=== PATIENT | female | born 1950 | race Caucasian/White ===

== ENCOUNTER → 2017-04-03 | Outpatient (CLI) | payer BC ==
--- NOTE | 2017-04-07 12:28 | MAMMOGRAPHY REPORT ---
BILATERAL DIGITAL SCREENING MAMMOGRAM TOMOSYNTHESIS WITH CAD: 04/03/2017 CLINICAL HISTORY: Routine screening. Patient has no complaints. TECHNIQUE: Breast tomosynthesis in addition to standard 2D mammography was performed. Current study was also evaluated with a Computer Aided Detection (CAD) system. COMPARISON: No prior exams were available for comparison. BREAST COMPOSITION: There are scattered areas of fibroglandular density in both breasts. FINDINGS: There is a small cluster of calcifications in the left upper and slightly inner breast, as well as a possible small cluster of calcifications within the left lower inner quadrant. Recommend spot magnification views for further evaluation. Additionally, there are 2 adjacent circumscribed ma sses seen within the right upper outer quadrant, one measuring 12 mm and the other measuring 5 mm, fo r which ultrasound and possible additional spot compression views are recommended for further evaluat ion. The remainder of both breasts demonstrate no suspicious masses, calcifications, or areas of principal network architect ural distortion. IMPRESSION: ACR BI-RADS CATEGORY 0: INCOMPLETE EVALUATION: NEED ADDITIONAL IMAGING EVALUATION Left breast calcifications and right breast masses, for which additional imaging evaluation is recomm ended. The patient will be called to schedule an appointment. Approximately 10% of breast cancers are not detected with mammography. A negative mammographic report should not delay biopsy if a clinically suggestive mass is present. Anai Lopez M.D. ah/:04/04/2017 16:45:53 Tank Car Loader: Ivana Blood M, [facility] letter sent: Addl Imaging 0 BI-RADS Code: ACR BI-RADS Category 0: Incomplete Evaluation: Need Additional Imaging Evaluation
== END | disposition home or self-care (01) ==
LOC: C.MAMM 16:00
PROVIDERS: ATTEND Internal Medicine Pulmonary Disease
DX: Z12.31 Encounter for screening mammogram for malignant neoplasm of breast (principal); R92.1 Mammographic calcification found on diagnostic imaging of breast; N63 Unspecified lump in breast

== ENCOUNTER → 2017-04-22 | Outpatient (CLI) | payer BC ==
--- NOTE | 2017-04-22 14:53 | MAMMOGRAPHY REPORT ---
UNILATERAL LEFT DIGITAL DIAGNOSTIC MAMMOGRAM AND TARGETED RIGHT ULTRASOUND: 04/22/2017 CLINICAL HISTORY: Callback from screening mammography for 2 groupings of left breast microcalcificati ons, and 2 right breast masses. Patient reports prior mammograms and [place], but they are not curre ntly available. Prior mammograms from 2006 and 2007 have been purged and are unobtainable. TECHNIQUE: Spot magnification left CC and ML views were obtained. COMPARISON: Comparison is made to exam dated: 04/03/2017 mammogram - [facility]. BREAST COMPOSITION: There are scattered areas of fibroglandular density in the left breast. FINDINGS: Spot magnification views of the left breast demonstrate a few coarse benign calcifications. There are 1-2 faint groupings of punctate and amorphous microcalcifications. The most conspicuous grouping is located in the 11:30 to 12:00 middle one third of the left breast, measuring 4 mm. Possi ble a few other loosely grouped punctate and amorphous microcalcifications in the lower inner anterio r left breast. As no prior mammograms are available to document stability, the microcalcifications a re indeterminate. Stereotactic guided biopsy of the 4 mm cluster in the 11:30 to 12:00 axis is recom mended. Pending pathology results, can follow the other loose grouping in the lower inner quadrant i n 6 months to ensure stability. Targeted ultrasound was performed throughout the right lateral breast to assess for the 2 possible ma sses identified mammographically. In the 10:00 axis, 4 cm from the nipple, there is a circumscribed parallel hypoechoic solid mass measuring 6.6 x 4.4 x 10.1 mm. Although this could represent a benign fibroadenoma, definitive characterization with tissue sampling is recommended. A lobulated parallel anechoic benign simple cyst is identified in the 10:00 right breast, 3 cm from the nipple, measuring 7.0 x 2.6 x 4.3 mm. There is a small adjacent cyst cluster in the 10:00 right breast, 3 cm from the nipple, measuring 5 mm. No other discrete solid or cystic masses seen throughout the lateral right breast. IMPRESSION: ACR BI-RADS CATEGORY 4B: INTERMEDIATE SUSPICION FOR MALIGNANCY, TARGETED ULTRASOUND ACR BI-RADS CATEGORY 4B: INTERMEDIATE SUSPICION FOR MALIGNANCY 1. Left breast stereotactic guided biopsy is recommended for a 4 mm cluster/grouping of amorphous mi crocalcifications in the 11:30 to 12:00 axis. Pending benign pathology results, would follow the [facility] er loosely grouped amorphous microcalcifications in the left lower inner quadrant in 6 months. 2. Ultrasound-guided core needle biopsy is recommended for an indeterminate solid 10 mm mass in the 10:00 right breast, 4 cm from the nipple. 3. Only a few other cysts and cyst clusters were identified in the lateral right breast on ultrasound . Therefore, correlation with post procedure mammograms is recommended. These results and recommendations were discussed with the patient at the time of the exam. She tenta tively scheduled the biopsies prior to leaving our department. Approximately 10% of breast cancers are not detected with mammography. A negative mammographic report should not delay biopsy if a clinically suggestive mass is present. Ivy Paredes M.D. ay/:04/22/2017 14:47:26 Hourly Sign Language Interpreter: Kayli MÉNDEZ(Ivana)(Jacque), [facility] letter sent: Abnormal 4/5 BI-RADS Code: ACR BI-RADS Category 4B: Intermediate Suspicion For Malignancy Ultrasound BI-RADS: ACR BI-RADS Category 4B: Intermediate Suspicion For Malignancy
== END | disposition home or self-care (01) ==
LOC: C.MAMM 10:48
PROVIDERS: ATTEND Internal Medicine Pulmonary Disease
DX: R92.0 Mammographic microcalcification found on diagnostic imaging of breast (principal); N63 Unspecified lump in breast

== ENCOUNTER → 2017-04-30 | Outpatient (CLI) | payer BC ==
--- NOTE | 2017-04-30 13:27 | Discharge Instructions ---
Discharge Instructions Procedure Procedure Date: Apr 30, 2017. Reason for visit: Left Calcs/Us Core Right Mass. Discharge Discharge Date: Apr 30, 2017. Discharge Diagnosis: status post breast biopsy Instructions Activity Recommendations: Additional Limitations (see below) Return to School/Work: no limitations Recommended Home Diet: No Limitations Provider Instructions: ACTIVITY RECOMMENDATIONS: * No lifting, pushing, pulling or exercising the affected side for three days. RETURN TO SCHOOL/WORK: * You may return to work/school after the procedure, but do not perform any strenuous activities for 24 to 48 hours. MEDICATIONS: * Tylenol (two 325 mg) every four to six hours if needed for mild pain (if not allergic to Tylenol). DIET: * Resume previous diet. SPECIAL CARE INSTRUCTIONS: * Keep biopsy site dry for 24 hours. May shower after 24 hours, but do not soak (bathe) incision. * May remove Tegaderm (plastic patch) tomorrow AFTER showering. * Leave the steri-strips on for one week. Allow the steri-strips to fall off by themselves. If not off after one week, you may remove them. You may place a Bandaid crosswise over the strips, if desired. * Apply ice 10 minutes on and 10 minutes off as needed. * Wear a bra at bedtime to sleep more comfortably for 2-3 days. * Your referring physician should have the results after approximately 5 to 7 business days. * Call for unusual bleeding, fever, drainage, etc or if you have any questions call during normal business hours or after hours call Dr Lopez, [phone]. FOLLOW UP VISIT: Follow-up with Referring Physician as scheduled. Tommy Avila Recommendations: Call your doctor if: * Temperature above 101 degrees * Pain not relieved by pain medicine ordered * There is increased drainage or redness from any incision * You have any unanswered questions or concerns. Your Doctors Instructions noted above were prepared by provider Anai Lopez. Patient Signature Section: Patient Instructions Signature Page Yudelka Ortiz Patient (or Guardian) Signature/Date: I have read and understand the instructions given to me by my caregivers. Caregiver/RN/Doctor Signature/Date: The above-named patient and/or guardian has received patient instructions on this date. + Original Patient Signature Page (only) stays with chart. Please make copy for patient.
--- NOTE | 2017-04-30 14:13 | MAMMOGRAPHY REPORT ---
THIS REPORT HAS BEEN AMENDED. STEREOTACTIC GUIDED BIOPSY LEFT BREAST: 04/30/2017 CLINICAL HISTORY: Indeterminate calcifications in the left 11:30 to 12:00 breast. PATIENT CONSENT: The procedure, risks, benefits, and alternatives of stereotactic biopsy with clip pl acement were discussed with the patient, and verbal and written consent was obtained. A timeout was performed immediately prior to the procedure. PROCEDURE DESCRIPTION: With stereotactic guidance, aseptic technique, and lidocaine as a local anesth etic (1% lidocaine to anesthetize the skin and 1% lidocaine with epinephrine to anesthetize the deepe r tissues), the area of concern was sampled multiple times with a 9-gauge vacuum-assisted biopsy need le (Suros Eviva). The path of approach was craniocaudal. The specimen radiograph demonstrates calci fications to be present in the samples; the samples containing calcifications (labeled "A ") were sep arated from the samples without calcifications (labeled "B"). A metallic marker clip was placed at t he biopsy site. This was confirmed on postprocedure mammograms. Direct pressure was applied at the biopsy site and hemostasis was readily achieved. The patient tolerated the procedure without complic ation. She was given wound care instructions. COMPARISON: Comparison is made to exams dated: 04/22/2017 ultrasound, 04/22/2017 mammogram, 04/03/2017 [facility], and 04/18/2008. IMPRESSION: STEREOTACTIC GUIDED BIOPSY Stereotactic biopsy of indeterminate calcifications in the left 11:30 to 12:00 breast, with clip plac ement. The patient will receive pathology results from her referring provider. Pending benign path ology results, recommend short interval follow-up diagnostic mammograms of the left breast in 6 month s to evaluate other loosely grouped calcifications in the left lower inner quadrant. Anai Lopez M.D. ah/:04/30/2017 13:29:21 Attending Technologist: Nancy Reno RT(R)(M), [facility] Circuit Judge: Paige BEASLEYR)(M), [facility] AMENDMENT: 05/07/2017 Anai Lopez M.D. Pathology of bilateral breast biopsies was reviewed on 05/07/2017. Pathology of left breast stereotact ic biopsy yielded fibrocystic change with associated microcalcifications. Pathology of right 10:00 b reast ultrasound guided biopsy yielded a benign fibroadenoma. Findings are benign and concordant wit h the imaging appearance. As recommended on the prior diagnostic mammogram report, recommend follow- up diagnostic tomosynthesis mammograms of the left breast in 6 months to reevaluate the other loosely grouped amorphous microcalcifications in the left lower inner quadrant.
--- NOTE | 2017-04-30 14:13 | MAMMOGRAPHY REPORT ---
ULTRASOUND GUIDED BIOPSY RIGHT BREAST: 04/30/2017 CLINICAL HISTORY: Right 10:00 breast mass. PATIENT CONSENT: The procedure, risks and benefits were discussed with the patient and informed writt en consent was obtained. A timeout was performed immediately prior to the procedure. PROCEDURE DESCRIPTION: With ultrasound guidance, aseptic technique, and lidocaine as the local anesth etic (1% lidocaine to anesthetize the skin and 1% lidocaine with epinephrine to anesthetize the deepe r tissues), the mass of concern in the right 10:00 breast was sampled 3 times with a 14-gauge Achieve biopsy needle. Immediately thereafter, with ultrasound guidance, aseptic technique, and lidocaine as the local anesthetic, a metallic localizer clip was placed centrally in the mass. Direct pressure w as applied to the site immediately post procedure and hemostasis was achieved. Postprocedure unilate ral mammograms were performed to confirm placement of the clip in the expected location of the breast mass. The patient tolerated the procedure without complication. She was given wound care instructi ons. The specimens were sent to pathology for analysis. COMPARISON: Comparison is made to exams dated: 04/22/2017 ultrasound, 04/22/2017 mammogram, 04/03/2017 [facility], and 04/18/2008. IMPRESSION: ULTRASOUND GUIDED BIOPSY Ultrasound guided core needle biopsy of the right 10:00 breast mass, with clip placement. The patien t will receive pathology results from her referring provider. Anai Lopez M.D. ah/:04/30/2017 14:02:31 Attending Technologist: Nancy Reno RT(R)(M), [facility] Staffing Branch Manager: Paige Dolan RT(R)(M), [facility]
--- NOTE | 2017-04-30 14:15 | MAMMOGRAPHY REPORT ---
BILATERAL DIGITAL DIAGNOSTIC MAMMOGRAM TOMOSYNTHESIS: 04/30/2017 CLINICAL HISTORY: Status post bilateral breast biopsies. TECHNIQUE: Breast tomosynthesis in addition to standard 2D mammography was performed. Right CC and ML tomosynthesis images including C views and left CC and ML 2-D views were obtained. COMPARISON: Comparison is made to exams dated: 04/30/2017 stereotactic biopsy, 04/22/2017 ultrasound, 04/03/2017 mammogram, and 04/22/2017 mammogram - [facility]. BREAST COMPOSITION: There are scattered areas of fibroglandular density in both breasts. FINDINGS: Preprocedural left cc views were obtained for biopsy planning purposes. Postprocedural le ft CC and ML views were performed, which shows a new biopsy marker clip in the left 12:00 breast at t he site of the biopsied calcifications. No significant postbiopsy hematoma is seen. Postprocedural right CC and ML tomosynthesis images were obtained, which shows a new biopsy marker cl ip at the site of the biopsied mass in the right 10:00 breast. The biopsy marker clip is located at the site of the dominant mass seen on the screening mammogram, indicating good correlation between th e biopsied sonographic mass and the initial mammographic mass. No significant postbiopsy hematoma is seen. IMPRESSION: POST PROCEDURE IMAGING FOR MARKER PLACEMENT New biopsy marker clips status post ultrasound-guided biopsy of a right 10:00 breast mass and stereot actic biopsy of left 11:30 to 12:00 calcifications. Pathology results are pending. Pending benign p athology results, recommend follow-up diagnostic mammograms of the left breast in 6 months to confirm stability of other loosely grouped calcifications in the left lower inner quadrant. Approximately 10% of breast cancers are not detected with mammography. A negative mammographic report should not delay biopsy if a clinically suggestive mass is present. Anai Lopez M.D. ah/:04/30/2017 14:06:55 Attending Technologist: Nancy Reno RT(R)(M), [facility] Technical Support Assistant: Paige Dolan RT(R)(M), [facility] BI-RADS Code: Post Procedure Imaging For Marker Placement
== END | disposition home or self-care (01) ==
LOC: C.MAMM 12:32
PROVIDERS: ATTEND Internal Medicine Pulmonary Disease
DX: R92.0 Mammographic microcalcification found on diagnostic imaging of breast (principal); N63 Unspecified lump in breast; N60.12 Diffuse cystic mastopathy of left breast; D24.1 Benign neoplasm of right breast

== ENCOUNTER → 2017-05-02 | Outpatient (CLI) | payer BC ==
[2017-05-02 09:40] LABS: BASO % 0.4 %; BASO ABS # 0.03 K/uL (0-0.2); COMPLETE YES; EOS % 2.2 %; HEMATOCRIT 43.7 % (37-47); IG% 0.4 %; LYMPH % 28.2 %; LYMPH ABS # 2.32 K/uL (1.2-3.4); MEAN CELL VOLUME 91.8 fL (80-100); MEAN CORPUSCULAR HEMOGLOBIN 31.9 pg (25-34); MEAN CORPUSCULAR HGB CONC 34.8 g/dl (32-36); MEAN PLATELET VOLUME 10.4 fL (7.4-10.4); MONO % 8.6 %; NEUT % 60.2 %; PLATELET COUNT 277 K/uL (130-400); RED BLOOD COUNT 4.76 M/uL (4.2-5.4); WHITE BLOOD COUNT 8.22 K/uL (4.8-10.8)
[2017-05-02 09:47] LABS: URINE APPEARANCE CLEAR (CLEAR); URINE BILIRUBIN NEG (NEG); URINE COLOR YELLOW; URINE EPITHELIAL CELL AUTO >30 /lpf (0-5); URINE NITRITE NEG (NEG); URINE SPECIFIC GRAVITY 1.022 (1.000-1.030); UROBILINOGEN NEG (NEG); ZZUR CULT IF INDIC CLEAN CATCH NO
[2017-05-02 09:49] LABS: MANUAL MICROSCOPIC REQUIRED? NO; REVIEW REQ? NO
[2017-05-02 10:04] LABS: ALT/SGPT 20 U/L (12-78); BLOOD UREA NITROGEN 14 mg/dl (7-18); BUN/CREATININE RATIO 20.3 (10-20); CALCIUM 9.7 mg/dl (8.5-10.1); CARBON DIOXIDE 27 mmol/L (21-32); CHLORIDE 105 mmol/L (98-107); CHOLESTEROL 248 mg/dl (0-200); CREATININE 0.71 mg/dl (0.60-1.20); GLUCOSE 86 mg/dl (70-99); POTASSIUM 3.7 mmol/L (3.5-5.1); SODIUM 138 mmol/L (136-145); TRIGLYCERIDES 210 mg/dl (0-150); VERY LOW DENSITY LIPOPROT CALC 42 mg/dl
[2017-05-02 10:15] LABS: ALB/GLOB RATIO 0.9 (0.9-2); ALKALINE PHOSPHATASE 104 U/L (45-117); AST/SGOT 13 U/L (15-37); CHOLESTEROL/HDL RATIO 4.7; HDL CHOLESTEROL 53 mg/dl; LDL CHOLESTEROL CALCULATED 153 mg/dl
== END | disposition home or self-care (01) ==
LOC: C.LAB1850 08:03
PROVIDERS: ATTEND Physician Assistant Medical
DX: Z00.00 Encounter for general adult medical examination without abnormal findings (principal); J45.909 Unspecified asthma, uncomplicated; R03.0 Elevated blood-pressure reading, without diagnosis of hypertension

== ENCOUNTER → 2017-05-03 | Outpatient (CLI) | payer BC | END | disposition home or self-care (01) | LOC: C.LAB1850 07:47 | PROVIDERS: ATTEND Physician Assistant Medical | DX: Z00.00 Encounter for general adult medical examination without abnormal findings (principal) ==

== ENCOUNTER → 2017-09-20 | Outpatient (CLI) | payer OTHER | END | disposition home or self-care (01) | LOC: C.LAB1850 08:13 | PROVIDERS: ATTEND Physician Assistant Medical | DX: E78.00 Pure hypercholesterolemia, unspecified (principal) ==

== ENCOUNTER → 2017-11-03 | Outpatient (CLI) | payer OTHER ==
--- NOTE | 2017-11-03 15:41 | MAMMOGRAPHY REPORT ---
UNILATERAL LEFT DIGITAL DIAGNOSTIC MAMMOGRAM TOMOSYNTHESIS WITH CAD: 11/03/2017 CLINICAL HISTORY: 67-year-old woman presents for follow-up in the left breast. She previously underw ent left breast stereotactic biopsy and right breast ultrasound-guided core biopsy, both of which yie lded benign pathology results. She presents to follow-up a second small very faint cluster of microc alcifications in the lower inner anterior left breast. TECHNIQUE: Left CC and MLO 2D and tomosynthesis images, spot magnification left CC and ML views were obtained. Current study was also evaluated with a Computer Aided Detection (CAD) system. COMPARISON: Comparison is made to exams dated: 04/30/2017 mammogram, 04/30/2017 stereotactic biopsy, ultrasound, 04/22/2017 mammogram, 04/03/2017 mammogram - [facility], and 04/18. BREAST COMPOSITION: There are scattered areas of fibroglandular density in the left breast. FINDINGS: There is a stable dumbbell-shaped biopsy marker clip in the 12:00 middle to anterior left b reast, denoting the site of prior benign stereotactic biopsy. A few rounded coarse benign calcificat ions are scattered in the inferior left breast. The spot magnification views redemonstrate a very fa int grouping of punctate microcalcifications in the lower inner anterior left breast that are not sig nificantly changed comparing back to spot magnification views obtained on 04/22/2017. Another six-mon th follow-up is recommended to ensure longer stability. No new suspicious mass, architectural distor tion or cluster of microcalcifications is seen throughout the remainder of the left breast. IMPRESSION: ACR-BI-RADS CATEGORY 3: PROBABLY BENIGN Stable mammographic appearance of the left breast, including stable postbiopsy changes in the 12:00 a xis, and a stable grouping of very faint, amorphous microcalcifications in the lower inner anterior l eft breast. Another six-month follow-up left diagnostic mammogram including spot magnification views is recommended to ensure longer stability of the non-biopsied grouping of calcifications. Annual ri ght mammography will also be due at that time. These results and recommendations were discussed with the patient at the time of the exam. She tenta tively scheduled the follow-up appointment prior to leaving the department. Approximately 10% of breast cancers are not detected with mammography. A negative mammographic report should not delay biopsy if a clinically suggestive mass is present. Ivy Paredes M.D. ay/:11/03/2017 10:32:51 Swatch Folder: Nancy MÉNDEZ(Ivana)(Jacque), [facility] letter sent: Follow Up Recommended 3 BI-RADS Code: ACR-BI-RADS Category 3: Probably Benign
== END | disposition home or self-care (01) ==
LOC: C.MAMM 09:03
PROVIDERS: ATTEND Internal Medicine Pulmonary Disease
DX: R92.0 Mammographic microcalcification found on diagnostic imaging of breast (principal)